=== PATIENT | female | born 2005 | race Caucasian/White ===

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

== ENCOUNTER 2024-01-20 18:33 | Outpatient (CLI) | payer OTHER, SELFPAY ==
--- OUTSIDE RECORDS SUMMARY | 2024-01-20 18:39 | XMS_ITS | Encounter Summary ---
Author Organization [facility] Address [address] [place] [address] Care Team Providers Care Divisional Storekeeper Name Role Phone Jed Almaguer MD Primary Care Provider Encounter Details Date Type Department Care Team (Late st Contact Info) Description 10/30/2019 Lab Requisition [facility] Pathology & Laboratory Medicine - [address] [address] Outr Resulting Lab, Provider Social History Tobacco Use Types Packs/Day Years Used Date Smoking Tobacco: Never Assessed Sex and Gender Information Value Date Recorded Sex Assigned at Not on file Gender Identity Not on file Sexual Orientation Not on file documented as of this encounter Plan of Treatment Not on file documented as of this encounter Procedures Procedure Name Priority Date/Time Associated Diagnosis Comments FSH Routine 10/30/2019 8:03 EDT documented in this encounter Results * FSH (10/30/2019 8:03 EDT) FSH 3.4 See Note mIU/mL 10/31/2019 8:59 EDT [facility] Blood VENOUS BLOOD / Unknown 10/30/2019 8:03 EDT 10/30/2019 22:11 EDT Narrative [facility] - 10/31/2019 8:59 EDT NOTE: Female FSH Reference Ranges (>= 13 Menstruating): PHYSIOLOGICAL STATUS ? REFERENCE RANGE ? Follicular (-12 to -4 days): ?? 2.5 - 10.2 mIU/mL Midcycle (-3 to +2 days): ?3.4 - 33.4 mIU/mL Luteal (+4 to +12 days): ? 1.5 - 9.1 mIU/mL Postmenopausal: ?23.0 - 116.3 mIU/mL Reference Ranges for female patients <13 years old have not been established. Provider Outr Resulting Lab CHEMISTRY & BLOOD GAS ORDERABLES [facility] [address] [place] [address] documented in this encounter Visit Diagnoses Not on filedocumented in this encounter Care Teams Divisional Storekeeper Relationship Specialty Start Date End Date Jed Almaguer MD PCP - General 01/24/15 documented as of this encounter
--- OUTSIDE RECORDS SUMMARY | 2024-01-20 18:39 | XMS_ITS | Encounter Summary ---
Author Organization [facility] Address [address] [place] [address] Care Team Providers Care Tool Filer Name Role Phone Jed Almaguer MD Primary Care Provider Encounter Details Date Type Department Care Team (Late st Contact Info) Description 10/30/[address] [facility] Pathology & Laboratory Medicine - [address] [address] Outr Resulting Lab, Provider Social History Tobacco [...] Procedure Name Priority Date/Time Associated Diagnosis Comments LH Routine 10/30/2019 8:03 EDT documented in this encounter Results * LH (10/30/2019 8:03 EDT) Luteinizing Hormone 2.1 See Note mIU/mL 10/31/2019 9:01 EDT [facility] Comment: NOTE: Female Reference Ranges: Pre-Pubertal: ?<6.0 mIU/mL Menstruating: Follicular Phase(-12 to -4 days: ??1.9 - 12.5 mIU/mL Midcycle(-3 to +2 days): ?8.7 - 76.3 mIU/mL Luteal Phase(+4 to +12 days): ? 0.5 - 16.9 mIU/mL Post Menopausal: 15.9 - 54.0 mIU/mL Blood VENOUS BLOOD / Unknown 10/30/2019 8:03 EDT 10/30/2019 22:11 EDT Provider Outr Resulting Lab CHEMISTRY & BLOOD GAS ORDERABLES [facility] [address] [place] [address] documented in this encounter Visit Diagnoses Not on filedocumented in this encounter Care Teams Tool Filer Relationship Specialty Start Date End Date Jed Almaguer MD PCP - General 01/24/15 documented as of this encounter
--- OUTSIDE RECORDS SUMMARY | 2024-01-20 18:39 | XMS_ITS | Encounter Summary ---
Author Organization [facility] Address [address] [place] [address] Care Team Providers Care Word Processing Machine Operator Name Role Phone Jed Almaguer MD Primary Care Provider [phone] Encounter Details Date Type Department Care Team (Late st Contact Info) Description 12/18/2021 Lab Requisition [facility] Pathology & Laboratory Medicine - [address] [address] Outr Resulting Lab, Provider Social History Tobacco [...] Procedure Name Priority Date/Time Associated Diagnosis Comments CHLAMYDIA/N. GONORRHOEAE AMPLIFIED NUCLEIC ACID Routine 12/17/2021 17:00 EDT documented in this encounter Results * CHLAMYDIA/N. GONORRHOEAE AMPLIFIED RNA (12/17/2021 17:00 EDT) Neisseria gonorrhoeae Result Negative Negative 12/19/2021 15:35 EDT [facility] Chlamydia trachomatis Result Negative Negative 12/19/2021 15:35 EDT [facility] Urine URINE / Unknown 12/17/2021 1 7:00 EDT 12/18/2021 22:58 EDT Narrative [facility] - 12/19/2021 15:35 EDT A first catch urine specimen is acceptable for detection of Gonorrhea and Chlamydia, but might detect up to 10% fewer infections when compared with vaginal and endocervical swab samples. Provider Outr Resulting Lab MICROBIOLOGY - GENERAL ORDERABLES [facility] [address] [place] [id number] documented in this encounter Visit Diagnoses Not on filedocumented in this encounter Care Teams Word Processing Machine Operator Relationship Specialty Start Date End Date Jed Almaguer MD PCP - General 01/24/15 documented as of this encounter
--- OUTSIDE RECORDS SUMMARY | 2024-01-20 18:39 | XMS_ITS | Referral Summary ---
Author Organization [facility] Address [address] [place] [address] Care Team Providers Care Director Public Policy Name Role Phone Jed Almaguer MD Primary Care Provider [phone] Social History Tobacco Use Types Packs/Day Years Used Date Smoking Tobacco: Never Assessed Sex and Gender Information Value Date Recorded Sex Assigned at Not on file Gender Identity Not on file Sexual Orientation Not on file Plan of Treatment Not on file Care Teams Director Public Policy Relationship Specialty Start Date End Date Jed Almaguer MD PCP - General 01/24/15
--- OUTSIDE RECORDS SUMMARY | 2024-01-20 18:39 | XMS_ITS | Encounter Summary ---
Author Organization [facility] Address [address] [place] [address] Care Team Providers Care Facilities Locator Name Role Phone Jed Almaguer MD Primary Care Provider [phone] Encounter Details Date Type Department Care Team (Late st Contact Info) Description 10/30/2019 Lab Requisition [facility] Pathology & Laboratory Medicine - [address] [address] Outr Resulting Lab, Provider Social History Tobacco [...] Procedure Name Priority Date/Time Associated Diagnosis Comments PROLACTIN Routine 10/30/2019 8:03 EDT documented in this encounter Results * PROLACTIN (10/30/2019 8:03 EDT) Prolactin 30.0 See Table ng/mL 10/31/2019 8:57 EDT [facility] Comment: NOTE: Female Reference Ranges: PHYSIOLOGICAL STATUS ?EXPECTED RANGE ? Postmenopausal ?1.8 - 20.3 ng/mL ?9.7 - 208.5 ng/mL Non- ?2.8 - 29.2 ng/mL Reference Ranges for Prolactin in female patients <18 years old have not been established. Blood VENOUS BLOOD / Unknown 10/30/2019 8:03 EDT 10/30/2019 22:11 EDT Provider Outr Resulting Lab CHEMISTRY & BLOOD GAS ORDERABLES [facility] [address] [place] [address] documented in this encounter Visit Diagnoses Not on filedocumented in this encounter Care Teams Facilities Locator Relationship Specialty Start Date End Date Jed Almaguer MD PCP - General 01/24/15 documented as of this encounter
--- OUTSIDE RECORDS SUMMARY | 2024-01-20 18:39 | XMS_ITS | Encounter Summary ---
Author Organization [facility] Address [address] [place] [address] Care Team Providers Care Child Care Director Name Role Phone Jed Almaguer MD Primary Care Provider [phone] Encounter Details Date Type Department Care Team (Late st Contact Info) Description 10/30/2019 Lab Requisition [facility] Pathology & Laboratory Medicine - [address] [id number] Outr Resulting Lab, Provider Social History Tobacco [...] Procedure Name Priority Date/Time Associated Diagnosis Comments THYROID ANTIBODIES Routine 10/30/2019 8:03 EDT documented in this encounter Results * THYROID ANTIBODIES (10/30/2019 8:03 EDT) Anti-Thyroglobulin 24 <=60 U/mL 2019 9:15 EDT [facility] Thyroperoxidase Ab <28 <=60 U/mL 2019 9:15 EDT [facility] Blood VENOUS BLOOD / Unknown 10/30/2019 8:03 EDT 10/30/2019 22:11 EDT Provider Outr Resulting Lab CHEMISTRY & BLOOD GAS ORDERABLES [facility] [address] [place] [address] documented in this encounter Visit Diagnoses Not on filedocumented in this encounter Care Teams Child Care Director Relationship Specialty Start Date End Date Jed Almaguer MD PCP - General 01/24/15 documented as of this encounter
--- OUTSIDE RECORDS SUMMARY | 2024-01-20 18:39 | XMS_ITS | Encounter Summary ---
Author Organization [facility] Address [address] [place] [address] Care Team Providers Care Tree Loader Meat Name Role Phone Jed Almaguer MD Primary Care Provider Encounter Details Date Type Department Care Team (Late st Contact Info) Description 10/30/2019 Lab Requisition [facility] Pathology & Laboratory Medicine - [address] [address] Outr Resulting Lab, Provider Social History Tobacco [...] Procedure Name Priority Date/Time Associated Diagnosis Comments VITAMIN D (25,OH) Routine 10/30/2019 8:03 EDT documented in this encounter Results * VITAMIN D (25,OH) (10/30/2019 8:03 EDT) 25OH Vitamin D Tot 34.9 30.0 - 100.0 ng/mL 10/31/2019 9:32 EDT [facility] Comment: Vitamin D 25,OH Interpretive Ranges: Deficiency: ??<10.0 ng/mL Insufficiency: ??10.0 - 30.0 ng/mL Sufficiency: ??30.0 - 100.0 ng/mL Toxicity: ??>100.0 ng/mL Blood VENOUS BLOOD / Unknown 10/30/2019 8:03 EDT 10/30/2019 22:11 EDT Provider Outr Resulting Lab CHEMISTRY & BLOOD GAS ORDERABLES [facility] [address] [place] [address] documented in this encounter Visit Diagnoses Not on filedocumented in this encounter Care Teams Tree Loader Meat Relationship Specialty Start Date End Date Jed Almaguer MD PCP - General 01/24/15 documented as of this encounter
--- OUTSIDE RECORDS SUMMARY | 2024-01-20 18:39 | XMS_ITS | Clinical Summary ---
Author Organization [facility] Address [address] [place] [address] Care Team Providers Care Tinware Lithograph Press Operator Name Role Phone Jed Almaguer MD Primary Care Provider [phone] Social History Tobacco Use Types Packs/Day Years Used Date Smoking Tobacco: Never Assessed Sex and Gender Information Value Date Recorded Sex Assigned at Not on file Gender Identity Not on file Sexual Orientation Not on file Plan of Treatment Health Maintenance Due Date Last Done Comments Hepatitis C Screen 2004 COVID-19 Vaccine (2022-24 season) 2022 Hepatitis B Vaccine (1 of 3 - 19+ 3-dose series) 03/03 Care Teams Tinware Lithograph Press Operator Relationship Specialty Start Date End Date Jed Almaguer MD PCP - General 01/24/15
--- OUTSIDE RECORDS SUMMARY | 2024-01-20 18:39 | XMS_ITS | Encounter Summary ---
Author Organization [facility] Address [address] [place] [address] Care Team Providers Care Hospital Mortician Name Role Phone Unavailable Primary Care Provider Unavailabl e Encounter Details Date Type Department Care Team (Late st Contact Info) Description 2004 13:37 EST Hospital Encounter [facility] [address] [place] [address] Jed Almaguer MD [address] [place] [address] Discharge Disposition: Auto Discharge Social History Tobacco Use Types Packs/Day Years Used Date Smoking Tobacco: Never Assessed Sex and Gender Information Value Date Recorded Sex Assigned at Not on file Gender Identity Not on file Sexual Orientation Not on file documented as of this encounter Discharge Disposition Disposition Code Departure Means Destination Auto Discharge documented in this encounter Plan of Treatment Not on file documented as of this encounter Procedures Procedure Name Priority Date/Time Associated Diagnosis Comments RAD US SPINE Routine 2004 14:18 EST documented in this encounter Results * RAD US SPINE (2004 14:18 EST) Anatomical Region Laterality Modality Other 2004 14:1 8 EST Impressions 11/08/2008 12:10 EDT IMPRESSION: Normal spine ultrasound. /[facility] Narrative 11/08/2008 12:10 EDT SPINE U/S, SACRAL DIMPLE R/O TETHERED CORD SPINE ULTRASOUND, 04 CLINICAL HISTORY: Sacral dimple. FINDINGS: Ultrasound of the spine shows the conus ends normally at the L2 level. Good motion of the filum terminale is demonstrated. There is no evidence of tethered cord, mass, or other abnormality. Incidentally noted are normal-appearing bilateral kidneys. Procedure Note Dipika Reno MD - 11/08/2008 SPINE U/S, SACRAL DIMPLE R/O TETHERED CORD SPINE ULTRASOUND, 04 CLINICAL HISTORY: Sacral dimple. FINDINGS: Ultrasound of the spine shows the conus ends normally at the L2 level. Good motion of the filum terminale is demonstrated. There is no evidence of tethered cord, mass, or other abnormality. Incidentally noted are normal-appearing bilateral kidneys. IMPRESSION IMPRESSION: Normal spine ultrasound. /[facility] Jed Almaguer MD IMG US ORDERABLES documented in this encounter Visit Diagnoses Not on filedocumented in this encounter
--- NOTE | 2024-01-20 18:45 | DI.RAD_ITS ---
Exam(s) XR CHEST 2V PA LATERAL EXAM: XR CHEST 2V PA LATERAL CLINICAL HISTORY: R05.9 COUGH TECHNIQUE: 2D digital imaging was performed. Two views. COMPARISON: No exams were available for comparison FINDINGS: HEART: Normal size. Aorta: Not dilated. PULMONARY VASCULATURE: Normal. MEDIASTINUM: Unremarkable. LUNGS: Clear. PLEURAL SPACE: No pleural effusion or pneumothorax. BONE:Unremarkable for age. SOFT TISSUES: Unremarkable. IMPRESSION: No acute abnormality. DATA REPOSITORY: RADIATION DOSE DELIVERED:
--- NOTE | 2024-01-20 20:07 | DI.VRAD_ITS ---
PROCEDURE INFORMATION: Exam: XR Chest Exam date and time: 01/20/2024 6:46 PM Age: 18 years old Clinical indication: Cough TECHNIQUE: Imaging protocol: Radiologic exam of the chest. Views: 2 views. COMPARISON: No relevant prior studies available. FINDINGS: Lungs: The lungs are clear. There is no pulmonary vascular congestion. Pleural spaces: There are no pleural effusions present. There is no evidence of pneumothorax. Heart/Mediastinum: The cardiomediastinal silhouette is within normal limits. Bones/joints: Findings suggest mild S shaped thoracolumbar scoliosis. IMPRESSION: No active cardiopulmonary disease identified. Dictated and Authenticated by: Artem Knight MD. Ordering:LE Lockhart MD
== END 2024-01-20 18:53 ==
PROVIDERS: PCP Family Medicine; Visit Provider Physician Assistant Medical
DX: R05.9 Cough, unspecified (principal)
CPT/HCPCS: 71046